=== PATIENT | female | born 1935 | race Caucasian/White ===

== ENCOUNTER → 2018-09-30 | Outpatient (CLI) | payer MEDICARE ==
[~2018-09-30] MED LIST: ATOR10 PO; ERGO500014 PO; ESOM40CA54 PO; FAMC250T4 PO; LEVO100T12 PO; LISI-613 PO; VITA1CAP85 SL; verapamil PO
== END | disposition home or self-care (01) ==
LOC: RAH 09:17
PROVIDERS: ATTEND Family Medicine
DX: Z12.31 Encounter for screening mammogram for malignant neoplasm of breast (principal)
CPT/HCPCS: 77067

== ENCOUNTER → 2019-06-25 | Outpatient (CLI) | payer MEDICARE ==
[~2019-06-25] VITALS: Ht 170.2 cm; Wt 79.5 kg
[~2019-06-25] MED LIST changes: +ALEN70TA10 PO; +B1/B1TAB4 PO; +LACTATED RINGERS 1000ML 1,000 ML IV SCH; +NAPR-1141 PO
[2019-06-25 10:26] VITALS: BP 154/81
[2019-06-25 10:36] LABS: APPEARANCE,URINE Cloudy (CLEAR); BASOPHILS % (AUTO) 1.3 % (0.0-5.0); BILIRUBIN,URINE Negative (NEGATIVE); COLOR,URINE Yellow (YELLOW); EOSINOPHILS % (AUTO) 3.7 % (0.0-8.0); GLUCOSE, URINE (UA) Negative (NEGATIVE); HEMATOCRIT 38.8 % (36-48); KETONES,URINE Negative (NEGATIVE); LEUKOCYTE ESTERASE ,URINE Large (NEGATIVE); LYMPHOCYTES % (AUTO) 30.4 % (21.0-51.0); MEAN CORPUSCULAR HEMOGLOBIN 31.3 pg (27.0-33.0); MEAN CORPUSCULAR HGB CONC 33.5 g/dL (32.0-36.0); MEAN CORPUSCULAR VOLUME 93.4 fL (79-99); MONOCYTES % (AUTO) 9.5 % (3.0-13.0); NEUTROPHILS % (AUTO) 55.1 % (40.0-77.0); NITRATE,URINE Positive (NEGATIVE); OCCULT BLOOD,URINE Negative (NEGATIVE); PLATELET COUNT (AUTO) 291 K/uL (130-400); PROTEIN,URINE Negative (NEGATIVE); RED BLOOD CELL COUNT(AUTO) 4.16 MIL/uL (4.00-5.50); RED CELL DISTRIBUTION WIDTH 14.1 % (11.0-15.5); WHITE BLOOD COUNT (AUTO) 7.8 K/uL (4.8-10.8)
[2019-06-25 10:45] LABS: CREATININE 1.6 mg/dL (0.5-1.5); POTASSIUM 4.7 mmol/L (3.5-5.1)
[2019-06-25 10:53] LABS: RBC,URINE 0-1 /HPF (0-1); WBC,URINE 26-50 /HPF (0-1)
[2019-06-25 10:54] LABS: BACTERIA,URINE Many /HPF (None Seen); SQUAMOUS EPITHELIAL CELL,UR Moderate /HPF (0-2)
== END | disposition home or self-care (01) ==
LOC: LAB 09:00 → EDSTATUS 10:00
PROVIDERS: ATTEND Surgery
DX: Z01.818 Encounter for other preprocedural examination (principal); K43.2 Incisional hernia without obstruction or gangrene; Z88.0 Allergy status to penicillin; Z88.5 Allergy status to narcotic agent
CPT/HCPCS: 36415; 80048; 81001; 85025; 93005

== ENCOUNTER 2019-07-15 08:14 | Day surgery (SDC) | payer MEDICARE ==
--- NOTE | 2019-07-13 16:00 | NUR ---
[facility] PT REFUSED TO BRING MED BTL. TO VERIFY LIST THAT IS ON FILE.
[2019-07-13 16:37] VITALS: BP 158/78
[2019-07-13 16:41] LABS: BASOPHILS % (AUTO) 1.5 % (0.0-5.0); EOSINOPHILS % (AUTO) 2.8 % (0.0-8.0); HEMATOCRIT 39.2 % (36-48); MEAN CORPUSCULAR HEMOGLOBIN 30.6 pg (27.0-33.0); MEAN CORPUSCULAR VOLUME 92.8 fL (79-99); MONOCYTES % (AUTO) 10.1 % (3.0-13.0); NEUTROPHILS % (AUTO) 49.6 % (40.0-77.0); NUCLEATED RED BLOOD CELLS 0.1 % (0.0-0.19); PLATELET COUNT (AUTO) 288 K/uL (130-400); RED BLOOD CELL COUNT(AUTO) 4.22 MIL/uL (4.00-5.50); RED CELL DISTRIBUTION WIDTH 14.1 % (11.0-15.5); WHITE BLOOD COUNT (AUTO) 7.3 K/uL (4.8-10.8)
[2019-07-13 16:42] LABS: APPEARANCE,URINE CLOUDY (CLEAR); BILIRUBIN,URINE NEGATIVE (NEGATIVE); COLOR,URINE YELLOW (YELLOW); GLUCOSE, URINE (UA) NEGATIVE (NEGATIVE); KETONES,URINE NEGATIVE (NEGATIVE); LEUKOCYTE ESTERASE ,URINE MODERATE (NEGATIVE); NITRATE,URINE POSITIVE (NEGATIVE); OCCULT BLOOD,URINE NEGATIVE (NEGATIVE); PROTEIN,URINE NEGATIVE (NEGATIVE); UROBILINOGEN,URINE 0.2 mg/dL (0.2-1.0)
[2019-07-13 16:49] LABS: BACTERIA,URINE Many /HPF (None Seen); RBC,URINE 0-1 /HPF (0-1); SQUAMOUS EPITHELIAL CELL,UR 0-2 /HPF (0-2)
[2019-07-13 16:50] LABS: CREATININE 1.5 mg/dL (0.5-1.5); POTASSIUM 4.8 mmol/L (3.5-5.1)
--- NOTE | 2019-07-14 10:30 | NUR ---
EKG PER DR. RAHMAN EKG OK TO GO FOURTH WITH PROCEDURE.
--- NOTE | 2019-07-14 17:57 | NUR ---
reported ua cloudy, positive nitrate , leukest moderate, wbc 6-10, bacteria many and sqam of 0-2, no new orders per doctor barbara julien not on any antibitoics as per medication reconcillation and also reported bun 22, clinical education assistant 1.5, gfr 35. Okay to proceed with procedure
[~2019-07-15] VITALS: Ht 170.2 cm; Wt 80.3 kg
[2019-07-15] VITALS (16 sets, daily range): BP systolic 131–182; BP diastolic 56–89
[~2019-07-15 08:14] MED LIST changes: -ERGO500014 PO; -LACTATED RINGERS 1000ML 1,000 ML IV SCH; -VITA1CAP85 SL
[2019-07-15] MEDS ORDERED: LACTATED RINGERS 1000ML 1,000 ML IV ONE (09:35)
[2019-07-15] MEDS ORDERED: ONDANSETRON HCL 4 MG/2 ML VIAL ONE (09:43)
[2019-07-15] MEDS ORDERED: LIDOCAINE PF 2% 5ML ABBOJECT ONE (09:43)
[2019-07-15] MEDS ORDERED: BUPIVACAINE/PF 0.25% 30ML VIAL IJ ONE (09:44)
[2019-07-15] MEDS ORDERED: ROCURONIUM 10MG/1ML SYR 10 MG/ML ML ONE (09:44)
[2019-07-15] MEDS ORDERED: FENTANYL CITRATE PF 50 MCG/1 ML 2ML VIAL ONE (09:44)
[2019-07-15] MEDS ORDERED: PROPOFOL 10 MG/ML 20ML VIAL IV ONE (09:44)
[2019-07-15] MEDS: CEFAZOLIN SODIUM 1 GM VIAL ONE ×2 (10:03→10:10)
[2019-07-15] MEDS ORDERED: DEXAMETHASONE SOD PHOSPHATE 10MG/ML 1ML VIAL ONE (10:18)
[2019-07-15] MEDS ORDERED: GLYCOPYRROLATE 1 MG/5 ML SYRINGE ONE (10:35)
[2019-07-15] MEDS ORDERED: NEOSTIGMINE 5MG/5ML SYR IV ONE (10:35)
== END 2019-07-15 13:47 | disposition home or self-care (01) ==
LOC: DAH 08:14
PROVIDERS: ATTEND Surgery
DX: K43.2 Incisional hernia without obstruction or gangrene (principal); I10 Essential (primary) hypertension; K21.9 Gastro-esophageal reflux disease without esophagitis; N28.9 Disorder of kidney and ureter, unspecified; Z88.1 Allergy status to other antibiotic agents; Z88.5 Allergy status to narcotic agent; Z98.890 Other specified postprocedural states
CPT/HCPCS: 36415; 49560; 80048; 81001; 85025; 93005; A4450; A4452; A4606; A4930; J0690; J1100; J2001; J2405; J2704; J2710; J3010; J3490 ×2; J7120 ×2

== ENCOUNTER → 2019-08-18 | Outpatient (CLI) | payer MEDICARE ==
[2019-08-18 10:19] LABS: CREATININE 1.4 mg/dL (0.5-1.5)
== END | disposition home or self-care (01) ==
LOC: LAB 09:52
PROVIDERS: ATTEND Surgery
DX: L76.32 Postprocedural hematoma of skin and subcutaneous tissue following other procedure (principal)
CPT/HCPCS: 36415; 82565; 84520

== ENCOUNTER → 2019-08-20 | Outpatient (CLI) | payer MEDICARE ==
[~2019-08-20] MED LIST changes: +IOHEXOL-350 75 ML VIAL IV ONE
== END | disposition home or self-care (01) ==
LOC: RAH 09:02
PROVIDERS: ATTEND Surgery
DX: L76.32 Postprocedural hematoma of skin and subcutaneous tissue following other procedure (principal); K44.9 Diaphragmatic hernia without obstruction or gangrene; M47.814 Spondylosis without myelopathy or radiculopathy, thoracic region; N32.89 Other specified disorders of bladder
CPT/HCPCS: 74176; Q9967

== ENCOUNTER → 2019-10-18 | Outpatient (CLI) | payer MEDICARE ==
[~2019-10-18] MED LIST changes: -IOHEXOL-350 75 ML VIAL IV ONE
== END | disposition home or self-care (01) ==
LOC: RAH 08:39
PROVIDERS: ATTEND Family Medicine
DX: Z12.31 Encounter for screening mammogram for malignant neoplasm of breast (principal)
CPT/HCPCS: 77067

== ENCOUNTER → 2020-09-08 | Outpatient (CLI) | payer MEDICARE ==
[~2020-09-08] MED LIST changes: -ALEN70TA10 PO; +ALEN70TA69 PO; +FAMC250T PO; -FAMC250T4 PO
== END | disposition home or self-care (01) ==
LOC: SHCH 10:25
PROVIDERS: ATTEND Internal Medicine Cardiovascular Disease
DX: I87.2 Venous insufficiency (chronic) (peripheral) (principal)
CPT/HCPCS: 93970

== ENCOUNTER → 2020-10-25 | Outpatient (CLI) | payer MEDICARE | END | disposition home or self-care (01) | LOC: RAH 12:25 | PROVIDERS: ATTEND Family Medicine | DX: Z12.31 Encounter for screening mammogram for malignant neoplasm of breast (principal) | CPT/HCPCS: 77067 ==

== ENCOUNTER 2020-11-02 07:23 | Inpatient (IN) | payer MEDICARE ==
[2020-10-25 13:47] LABS: INR 0.94 (0.85-1.15); PARTIAL THROMBOPLASTIN TIME 25.4 SEC (26.3-35.5); PROTHROMBIN TIME 10.2 SEC (9.6-11.6)
[2020-11-01 11:12] VITALS: BP 200/75
[2020-11-02] VITALS (24 sets, daily range): BP systolic 118–180; BP diastolic 42–87
[~2020-11-02] VITALS: Ht 170.2 cm; Wt 74.8 kg
[2020-11-02] MEDS ORDERED: LACTATED RINGERS 1000ML 1,000 ML IV ONE (08:50)
[2020-11-02] MEDS ORDERED: LIDOCAINE PF 2% 5ML ABBOJECT ONE (09:34)
[2020-11-02] MEDS ORDERED: ROCURONIUM 10MG/1ML SYR 10 MG/ML ML ONE (09:35)
[2020-11-02] MEDS ORDERED: PROPOFOL 10 MG/ML 20ML VIAL IV ONE (09:35)
[2020-11-02] MEDS ORDERED: FENTANYL CITRATE PF 50 MCG/1 ML 2ML VIAL ONE (09:36)
[2020-11-02] MEDS ORDERED: ROPIVACAINE 0.5% 5MG/ML 30ML IJ ONE (09:38)
[2020-11-02] MEDS ORDERED: CLINDAMYCIN 900 MG/D5% WATER 50 ML IV ONE (09:43)
[2020-11-02] MEDS ORDERED: TRANEXAMIC ACID 1000MG/10ML ONE (09:47)
[2020-11-02] MEDS ORDERED: GLYCOPYRROLATE 1 MG/5 ML SYRINGE ONE (11:55)
[2020-11-02] MEDS ORDERED: SODIUM CHLORIDE 0.9% 10 ML VIAL ONE (12:16)
[2020-11-02] MEDS ORDERED: PHENYLEPHRINE HCL 10 MG/ML 1ML VIAL IV ONE (12:16)
[2020-11-02] MEDS ORDERED: NEOSTIGMINE 5MG/5ML SYR IV ONE (12:49)
[2020-11-02] MEDS ORDERED: KETOROLAC TROMETHAMINE 30MG/ML ONE (12:53)
[2020-11-02] MEDS: ACETAMINOPHEN EXTRA STRENGTH 500 MG TABLET PO SCH ×2 (13:00→20:59)
[2020-11-02] MEDS: SODIUM CHLORIDE 0.9% 1000ML 1,000 ML IV SCH (13:00)
[2020-11-02] MEDS ORDERED: CALCIUM CARBONATE 500 MG TABLET PO PRN (13:00)
[2020-11-02] MEDS ORDERED: DiphenhydrAMINE HCL 50 MG/ML VIAL IVP PRN (13:00)
[2020-11-02] MEDS ORDERED: ONDANSETRON HCL 4 MG/2 ML VIAL IVP PRN (13:00)
[2020-11-02] MEDS ORDERED: HYDROMORPHONE HCL 2 MG TAB PO PRN (13:00)
[2020-11-02] MEDS ORDERED: ONDANSETRON HCL 4 MG/2 ML VIAL ONE (13:01)
[2020-11-02] MEDS ORDERED: ARTIFICAL TEARS SOL 15 ML OU PRN (16:45)
[2020-11-02] MEDS: MORPHINE SULFATE 4 MG/1ML SYG IVP PRN ×2 (17:08→21:05)
[2020-11-02] MEDS: CLINDAMYCIN 600 MG/D5% WATER 50 ML IV SCH ×2 (17:21→17:22)
[2020-11-02] MEDS: ASPIRIN 81 MG EC TAB PO SCH (20:58)
[2020-11-02] MEDS: FAMCICLOVIR 250 MG PO SCH (21:00)
[2020-11-02] MEDS ORDERED: FAMCICLOVIR 250 MG PO SCH (21:00)
[2020-11-03] MEDS: CLINDAMYCIN 600 MG/D5% WATER 50 ML IV SCH ×2 (01:06→19:17)
[2020-11-03] MEDS: SODIUM CHLORIDE 0.9% 1000ML 1,000 ML IV SCH ×2 (01:07→09:00)
[2020-11-03 03:50] VITALS: BP 128/56
[2020-11-03 05:45] LABS: MEAN CORPUSCULAR HEMOGLOBIN 29.9 pg (27.0-33.0); MEAN CORPUSCULAR HGB CONC 32.3 g/dL (32.0-36.0); MEAN CORPUSCULAR VOLUME 92.5 fL (79-99); RED BLOOD CELL COUNT(AUTO) 3.35 MIL/uL (4.00-5.50); RED CELL DISTRIBUTION WIDTH 14.6 % (11.0-15.5); WHITE BLOOD COUNT (AUTO) 7.2 K/uL (4.8-10.8)
[2020-11-03 05:59] LABS: CREATININE 1.2 mg/dL (0.5-1.5); POTASSIUM 4.6 mmol/L (3.5-5.1)
[2020-11-03] MEDS: LEVOTHYROXINE 100 MCG TABLET PO SCH (06:18)
[2020-11-03] MEDS: ACETAMINOPHEN EXTRA STRENGTH 500 MG TABLET PO SCH ×3 (06:19→19:43)
[2020-11-03 08:00] VITALS: BP 127/52
[2020-11-03] MEDS: LISINOPRIL 20 MG TABLET PO SCH (08:48)
[2020-11-03] MEDS: POLYETHYLENE GLYCOL 3350 17 GM POWD.PACK PO SCH (08:48)
[2020-11-03] MEDS: FAMOTIDINE 20MG TAB 20 MG TAB PO SCH (08:48)
[2020-11-03] MEDS: ASPIRIN 81 MG EC TAB PO SCH ×2 (08:48→19:43)
[2020-11-03] MEDS: IBUPROFEN 400 MG TABLET PO PRN (08:50)
[2020-11-03] MEDS: FAMCICLOVIR 250 MG PO SCH ×2 (08:51→19:44)
[2020-11-03 12:00] VITALS: BP 102/42
--- NOTE | 2020-11-03 13:48 | NUR ---
CM NOTE/[facility] MET WITH PATIENT AT BEDSIDE FOR NEW REFERRAL TO IRU FOR PHYSICAL THERAPY. SUSAN COMPLETED FOR [facility] OR [facility]. VB CALLED,NO BEDS UNTIL 2019. PATIENT STATES OK FOR PLAN B OF [facility]. PER [facility], BEDS AVAILABLE, OK TO SEND CLINICAL REFERRAL AND CURRENT COVID PCR NEGATIVE TEST WHICH RESULTED ON 10/25. CLINICAL REFERRAL EMAILED TO [facility], PENDING DR. WEN TO SIGN COVID FORM, FAXED TO HIS OFFICE, PENDING RETURN FAX. PRIMARY NURSE, VIOLA YOUNG, AWARE OF DC PLAN.
--- NOTE | 2020-11-03 13:52 | NUR ---
CM NOTE/IA MET WITH PATIENT IN ROOM. PER PATIENT, LIVES ALONE IN A SMALL TRAILED, IS INDEPENDENT WITH ADLS, HAS RAMP, HAS USE OF CANE AND ROLLATOR WALKER, DRIVES TO APPOINTMENTS, AND OPEN TO IRU. REFERRAL HAS ALREADY BEEN SENT TO [facility]. CM TO FOLLOW UP FOR ACCEPTANCE. Addendum: 11/03/20 at 1355 by ZARIA REYNOLDS RN CM Amended: Links added.
[2020-11-03 16:00] VITALS: BP 118/48
--- NOTE | 2020-11-03 16:11 | NUR ---
CM NOTE/[facility] PER [facility] AT [facility], PATIENT HAS BEEN ACCEPTED. PER DR. WEN, PATIENT TO DC IN AM. PATIENT AWARE. PRIMARY NURSE, VIOLA YOUNG, AWARE.
[2020-11-03 19:33] VITALS: BP 124/50
[2020-11-03] MEDS: MORPHINE SULFATE 4 MG/1ML SYG IVP PRN (19:47)
[2020-11-03 23:25] VITALS: BP 130/54
[2020-11-04 04:00] VITALS: BP 135/54
[2020-11-04] MEDS: LEVOTHYROXINE 100 MCG TABLET PO SCH (05:26)
[2020-11-04] MEDS: ACETAMINOPHEN EXTRA STRENGTH 500 MG TABLET PO SCH ×2 (05:28→13:17)
[2020-11-04] MEDS: MORPHINE SULFATE 4 MG/1ML SYG IVP PRN (07:57)
[2020-11-04] MEDS: FAMOTIDINE 20MG TAB 20 MG TAB PO SCH (07:59)
[2020-11-04] MEDS: ASPIRIN 81 MG EC TAB PO SCH (07:59)
[2020-11-04] MEDS: FAMCICLOVIR 250 MG PO SCH (07:59)
[2020-11-04] MEDS: LISINOPRIL 20 MG TABLET PO SCH (07:59)
[2020-11-04] MEDS: POLYETHYLENE GLYCOL 3350 17 GM POWD.PACK PO SCH (07:59)
[2020-11-04 08:00] VITALS: BP 163/63
[2020-11-04 12:00] VITALS: BP 105/54
[2020-11-04 16:00] VITALS: BP 155/62
[2020-11-04] MEDS: IBUPROFEN 400 MG TABLET PO PRN (17:36)
--- NOTE | 2020-11-04 18:10 | NUR ---
DISCHARGE PATIENT GIVEN DISCHARGE INSTRUCTIONS VIA TEACH BACK. 20G PIV TO LEFT HAND AND 20G PIV TO RIGHT HAND DISCONTINUED, TIPS INTACT. PATIENT TO BE TRANSFERRED TO [facility] FOR PHYSICAL THERAPY, INCISION CARE, PAIN AND ANTICOAGULANT MANAGEMENT. REPORT GIVEN TO HANNAH MARADIAGA. DRESSING TO LEFT HIP CHANGED, TO BE REMOVED ONCE BATTERY PACK NO LONGER WORKS. PATIENT TRANSFERRED VIA EMS TO FACILITY. PATIENT STABLE AT THIS TIME AND DENIES ANY PAIN OR DISCOMFORT.
[2020-11-05] MEDS ORDERED: BISACODYL 10 MG SUPP.RECT RC PRN (13:00)
== END 2020-11-04 18:10 | DRG 470 ==
LOC: DAH 07:23 → DAHIP 07:24 → 3AH 14:29
PROVIDERS: ADMIT Orthopaedic Surgery; ATTEND Orthopaedic Surgery
PROC: 0SRB039 Replacement of Left Hip Joint with Ceramic Synthetic Substitute, Cemented, Open Approach (ICD-10-PCS; principal; 2020-11-02 10:24)
DX: M16.12 Unilateral primary osteoarthritis, left hip (principal); M84.359A Stress fracture, hip, unspecified, initial encounter for fracture; X58.XXXA Exposure to other specified factors, initial encounter; M21.752 Unequal limb length (acquired), left femur; Z20.828 Contact with and (suspected) exposure to other viral communicable diseases; E66.3 Overweight; M54.5 Low back pain; Y93.89 Activity, other specified; Y92.89 Other specified places as the place of occurrence of the external cause; Z88.1 Allergy status to other antibiotic agents; Y99.8 Other external cause status; Z88.5 Allergy status to narcotic agent; Z88.8 Allergy status to other drugs, medicaments and biological substances; Z82.3 Family history of stroke; Z82.49 Family history of ischemic heart disease and other diseases of the circulatory system; Z80.9 Family history of malignant neoplasm, unspecified; Z68.25 Body mass index [BMI] 25.0-25.9, adult
CPT/HCPCS: 36415; 73503; 73521; 80048; 85027; 85610; 85730; 86850; 86900; 86901; 87070; 87076; 87205; 87641; 93005; 97039; A4606; G0378; J1885; J2001; J2270; J2370; J2405; J2704; J2710; J2795; J3010; J3490; J7120; U0003

== ENCOUNTER 2020-11-19 10:11 | Inpatient (IN) | payer MEDICARE ==
[~2020-11-19] VITALS: Ht 170.2 cm; Wt 83.6 kg
[2020-11-19 12:23] LABS: BASOPHILS % (AUTO) 0.8 % (0.0-5.0); EOSINOPHILS % (AUTO) 0.4 % (0.0-8.0); HEMATOCRIT 28.4 % (36-48); LYMPHOCYTES % (AUTO) 11.8 % (21.0-51.0); MEAN CORPUSCULAR HEMOGLOBIN 30.5 pg (27.0-33.0); MEAN CORPUSCULAR HGB CONC 33.1 g/dL (32.0-36.0); MEAN CORPUSCULAR VOLUME 92.2 fL (79-99); MONOCYTES % (AUTO) 6.9 % (3.0-13.0); NEUTROPHILS % (AUTO) 78.6 % (40.0-77.0); PLATELET COUNT (AUTO) 533 K/uL (130-400); RED BLOOD CELL COUNT(AUTO) 3.08 MIL/uL (4.00-5.50); RED CELL DISTRIBUTION WIDTH 14.6 % (11.0-15.5); WHITE BLOOD COUNT (AUTO) 14.4 K/uL (4.8-10.8)
[2020-11-19 12:40] LABS: CREATININE 1.4 mg/dL (0.5-1.5); POTASSIUM 4.6 mmol/L (3.5-5.1)
[2020-11-19 12:44] LABS: ALBUMIN 3.2 g/dL (3.5-5.0); BILIRUBIN,TOTAL 0.6 mg/dL (0.2-1.0); TOTAL PROTEIN, SERUM 6.2 g/dL (6.0-8.3)
[2020-11-19 12:50] LABS: INR 1.07 (0.85-1.15); PROTHROMBIN TIME 11.4 SEC (9.6-11.6)
[2020-11-19 12:51] LABS: PARTIAL THROMBOPLASTIN TIME 25.5 SEC (26.3-35.5)
[2020-11-19] MEDS ORDERED: ONDANSETRON HCL 4 MG/2 ML VIAL ONE (13:47)
[2020-11-19] MEDS ORDERED: ENOXAPARIN SODIUM 80 MG/0.8 ML SQ ONE (13:47)
[2020-11-19] MEDS ORDERED: MORPHINE SULFATE 2 MG/ML 1ML SYG ONE ×2 (13:47→16:03)
[2020-11-19] MEDS ORDERED: HYDROMORPHONE 1 MG/1 ML AMP IVP ONE (16:15)
[2020-11-19] MEDS ORDERED: MAG HYDROX/AL HYDROX/SIMETH ES 30 ML SUSP UDCUP PO PRN (16:15)
[2020-11-19] MEDS ORDERED: DIPHENHYDRAMINE HCL 25 MG CAPSULE PO PRN (16:15)
[2020-11-19] MEDS ORDERED: ACETAMINOPHEN 325 MG TAB PO PRN ×2 (16:15)
[2020-11-19] MEDS ORDERED: PHARMACY COMMUNICATION MISC SCH (16:15)
[2020-11-19] MEDS ORDERED: GUAIFENESIN-DM 200/20 MG 10 ML PO PRN (16:15)
[2020-11-19 18:31] VITALS: BP 112/80
[2020-11-19 19:35] VITALS: BP 99/44
[2020-11-19] MEDS: ATORVASTATIN CALCIUM 20 MG TABLET PO SCH (19:36)
[2020-11-19] MEDS ORDERED: LEVOFLOXACIN 500 MG/D5W 100 ML 100 ML IV SCH (20:00)
[2020-11-19] MEDS: MORPHINE SULFATE 4 MG/1ML SYG IV PRN (20:19)
[2020-11-19] MEDS: VERAPAMIL PO SCH (21:00)
[2020-11-19 23:22] VITALS: BP 112/43
[2020-11-20] VITALS (21 sets, daily range): BP systolic 98–127; BP diastolic 45–58
[2020-11-20] MEDS: ENOXAPARIN SODIUM 80 MG/0.8 ML SQ SCH ×2 (02:12→09:00)
[2020-11-20] MEDS: LEVOTHYROXINE 100 MCG TABLET PO SCH (05:12)
[2020-11-20] MEDS: MORPHINE SULFATE 4 MG/1ML SYG IV PRN (05:17)
[2020-11-20] MEDS: HYDROMORPHONE 1 MG/1 ML AMP IVP PRN ×2 (08:16→12:48)
[2020-11-20] MEDS: Vitamin B Complex/Vit C/Folic Acid PO SCH (09:00)
[2020-11-20] MEDS: LISINOPRIL 20 MG TABLET PO SCH (09:00)
[2020-11-20 13:16] LABS: BASOPHILS % (AUTO) 0.9 % (0.0-5.0); EOSINOPHILS % (AUTO) 0.9 % (0.0-8.0); HEMATOCRIT 21.9 % (36-48); LYMPHOCYTES % (AUTO) 19.6 % (21.0-51.0); MEAN CORPUSCULAR HEMOGLOBIN 30.3 pg (27.0-33.0); MEAN CORPUSCULAR VOLUME 94.8 fL (79-99); MONOCYTES % (AUTO) 11.8 % (3.0-13.0); NEUTROPHILS % (AUTO) 64.9 % (40.0-77.0); PLATELET COUNT (AUTO) 385 K/uL (130-400); RED BLOOD CELL COUNT(AUTO) 2.31 MIL/uL (4.00-5.50); RED CELL DISTRIBUTION WIDTH 14.9 % (11.0-15.5); WHITE BLOOD COUNT (AUTO) 10.7 K/uL (4.8-10.8)
[2020-11-20] MEDS ORDERED: SODIUM HYPOCHLORITE 0.25% [HALF STRENGTH] 473 ML TOPICAL SOLN TP ONE (19:00)
[2020-11-20] MEDS ORDERED: TRANEXAMIC ACID 1000MG/10ML ONE (19:06)
[2020-11-20] MEDS ORDERED: CEFAZOLIN SODIUM 1 GM VIAL ONE (19:10)
[2020-11-20] MEDS ORDERED: LIDOCAINE PF 2% 5ML ABBOJECT ONE (19:18)
[2020-11-20] MEDS ORDERED: MIDAZOLAM HCL 1 MG/ML 2ML VIAL ONE (19:19)
[2020-11-20] MEDS ORDERED: ONDANSETRON HCL 4 MG/2 ML VIAL ONE (19:19)
[2020-11-20] MEDS ORDERED: DEXAMETHASONE SOD PHOSPHATE 10MG/ML 1ML VIAL ONE (19:19)
[2020-11-20] MEDS ORDERED: PROPOFOL 10 MG/ML 20ML VIAL IV ONE (19:19)
[2020-11-20] MEDS ORDERED: FENTANYL CITRATE PF 50 MCG/1 ML 2ML VIAL ONE (19:20)
[2020-11-20] MEDS ORDERED: ROCURONIUM 10MG/1ML SYR 10 MG/ML ML ONE ×2 (19:45→20:16)
[2020-11-20] MEDS ORDERED: LEVOFLOXACIN 250 MG/D5W 50ML 50 ML IVPB SCH (20:00)
[2020-11-20] MEDS ORDERED: EPHEDRINE SULFATE 50 MG/ML AMPULE ONE (20:02)
[2020-11-20] MEDS ORDERED: CLINDAMYCIN PHOSPHATE 150 MG/ML 6ML VIAL ONE (20:16)
[2020-11-20] MEDS: VERAPAMIL PO SCH (21:00)
[2020-11-20] MEDS: ATORVASTATIN CALCIUM 20 MG TABLET PO SCH (21:00)
[2020-11-20] MEDS ORDERED: NEOSTIGMINE 5MG/5ML SYR IV ONE (22:00)
[2020-11-20] MEDS ORDERED: GLYCOPYRROLATE 1 MG/5 ML SYRINGE ONE (22:00)
[2020-11-20] MEDS ORDERED: SUGAMMADEX SODIUM 200 MG/2 ML VIAL IV ONE (22:12)
[2020-11-20 22:26] LABS: ABG BASE EXCESS -9.9 mmol/L (-2.0-3.0); ABG HCO3 16.2 mmol/L (21.0-28.0); ABG OXYGEN SATURATION 98.7 % (95.0-99.0); ABG PCO2 36 mmHg (32-45)
[2020-11-20] MEDS ORDERED: SODIUM BICARB 50MEQ 50ML VIAL 50 ML ONE (22:29)
[2020-11-20 23:44] LABS: ABG BASE EXCESS -4.3 mmol/L (-2.0-3.0); ABG OXYGEN SATURATION 94.6 % (95.0-99.0); ABG PCO2 33 mmHg (32-45)
[2020-11-21] VITALS (18 sets, daily range): BP systolic 84–119; BP diastolic 36–63
[2020-11-21] MEDS: CLINDAMYCIN 600 MG/D5% WATER 50 ML IV SCH ×4 (01:51→21:45)
[2020-11-21] MEDS: LEVOTHYROXINE 100 MCG TABLET PO SCH (06:39)
[2020-11-21] MEDS: Vitamin B Complex/Vit C/Folic Acid PO SCH (08:43)
[2020-11-21] MEDS: LISINOPRIL 20 MG TABLET PO SCH (08:44)
[2020-11-21 09:40] LABS: HEMATOCRIT 24.4 % (36-48); MEAN CORPUSCULAR HEMOGLOBIN 30.4 pg (27.0-33.0); MEAN CORPUSCULAR HGB CONC 33.6 g/dL (32.0-36.0); MEAN CORPUSCULAR VOLUME 90.4 fL (79-99); RED BLOOD CELL COUNT(AUTO) 2.7 MIL/uL (4.00-5.50); RED CELL DISTRIBUTION WIDTH 14.8 % (11.0-15.5); WHITE BLOOD COUNT (AUTO) 10.2 K/uL (4.8-10.8)
[2020-11-21 09:48] LABS: CREATININE 1.9 mg/dL (0.5-1.5); POTASSIUM 4.9 mmol/L (3.5-5.1)
[2020-11-21] MEDS: VERAPAMIL PO SCH (21:00)
[2020-11-21] MEDS: ATORVASTATIN CALCIUM 20 MG TABLET PO SCH (21:46)
[2020-11-21] MEDS: SULFAMETHOX-TMP DS 800/160 TAB PO SCH (21:46)
[2020-11-21] MEDS: MORPHINE SULFATE 4 MG/1ML SYG IV PRN (21:46)
[2020-11-22] VITALS (7 sets, daily range): BP systolic 86–98; BP diastolic 34–45
[2020-11-22] MEDS: CLINDAMYCIN 600 MG/D5% WATER 50 ML IV SCH ×4 (02:38→20:36)
[2020-11-22] MEDS: LEVOTHYROXINE 100 MCG TABLET PO SCH (07:03)
[2020-11-22] MEDS: LISINOPRIL 20 MG TABLET PO SCH (09:00)
[2020-11-22] MEDS: APIXABAN 2.5 MG TABLET PO SCH ×2 (10:55→20:37)
[2020-11-22] MEDS: SULFAMETHOX-TMP DS 800/160 TAB PO SCH ×2 (10:55→20:36)
[2020-11-22] MEDS: Vitamin B Complex/Vit C/Folic Acid PO SCH (10:55)
[2020-11-22] MEDS: ONDANSETRON HCL 4 MG/2 ML VIAL IV PRN (10:56)
[2020-11-22] MEDS: MORPHINE SULFATE 4 MG/1ML SYG IV PRN (10:56)
[2020-11-22] MEDS: VERAPAMIL PO SCH (10:57)
[2020-11-22] MEDS: ATORVASTATIN CALCIUM 20 MG TABLET PO SCH (20:36)
[2020-11-23] VITALS (8 sets, daily range): BP systolic 107–146; BP diastolic 46–70
[2020-11-23] MEDS: CLINDAMYCIN 600 MG/D5% WATER 50 ML IV SCH (02:00)
[2020-11-23 03:48] LABS: BASOPHILS % (AUTO) 0.4 % (0.0-5.0); EOSINOPHILS % (AUTO) 1.7 % (0.0-8.0); MEAN CORPUSCULAR HEMOGLOBIN 30.3 pg (27.0-33.0); MEAN CORPUSCULAR HGB CONC 33.2 g/dL (32.0-36.0); MEAN CORPUSCULAR VOLUME 91.4 fL (79-99); MONOCYTES % (AUTO) 9.9 % (3.0-13.0); NEUTROPHILS % (AUTO) 59.1 % (40.0-77.0); PLATELET COUNT (AUTO) 328 K/uL (130-400); RED BLOOD CELL COUNT(AUTO) 2.21 MIL/uL (4.00-5.50); RED CELL DISTRIBUTION WIDTH 14.8 % (11.0-15.5); WHITE BLOOD COUNT (AUTO) 9.2 K/uL (4.8-10.8)
[2020-11-23 03:57] LABS: HEMATOCRIT 20.2 % (36-48)
[2020-11-23 04:04] LABS: ALBUMIN 2.2 g/dL (3.5-5.0); BILIRUBIN,TOTAL 0.4 mg/dL (0.2-1.0); CREATININE 2.8 mg/dL (0.5-1.5); POTASSIUM 4.9 mmol/L (3.5-5.1)
[2020-11-23 04:09] LABS: % IRON SATURATION 22.5 % (22-44)
[2020-11-23] MEDS: LEVOTHYROXINE 100 MCG TABLET PO SCH (06:13)
[2020-11-23] MEDS: Vitamin B Complex/Vit C/Folic Acid PO SCH (09:46)
[2020-11-23] MEDS: SULFAMETHOX-TMP DS 800/160 TAB PO SCH ×2 (09:47→19:52)
[2020-11-23] MEDS: LISINOPRIL 20 MG TABLET PO SCH (09:47)
[2020-11-23] MEDS: LACTULOSE 20 GM/30 ML UDCUP PO PRN (17:29)
[2020-11-23] MEDS: ATORVASTATIN CALCIUM 20 MG TABLET PO SCH (19:52)
[2020-11-23] MEDS: VERAPAMIL PO SCH (19:55)
[2020-11-23 20:16] LABS: HEMATOCRIT 30.4 % (36-48)
[2020-11-24] VITALS (8 sets, daily range): BP systolic 114–174; BP diastolic 59–89
[2020-11-24] MEDS: LEVOTHYROXINE 100 MCG TABLET PO SCH (06:53)
[2020-11-24 06:55] LABS: BASOPHILS % (AUTO) 0.8 % (0.0-5.0); EOSINOPHILS % (AUTO) 2.7 % (0.0-8.0); HEMATOCRIT 29.8 % (36-48); LYMPHOCYTES % (AUTO) 20.4 % (21.0-51.0); MEAN CORPUSCULAR HEMOGLOBIN 29.9 pg (27.0-33.0); MEAN CORPUSCULAR HGB CONC 33.6 g/dL (32.0-36.0); MEAN CORPUSCULAR VOLUME 89.2 fL (79-99); MONOCYTES % (AUTO) 11.7 % (3.0-13.0); NEUTROPHILS % (AUTO) 61.6 % (40.0-77.0); PLATELET COUNT (AUTO) 375 K/uL (130-400); RED BLOOD CELL COUNT(AUTO) 3.34 MIL/uL (4.00-5.50); RED CELL DISTRIBUTION WIDTH 15.6 % (11.0-15.5); WHITE BLOOD COUNT (AUTO) 9.8 K/uL (4.8-10.8)
[2020-11-24 07:23] LABS: ALBUMIN 2.5 g/dL (3.5-5.0); BILIRUBIN,TOTAL 0.6 mg/dL (0.2-1.0); CREATININE 2.1 mg/dL (0.5-1.5); POTASSIUM 4.8 mmol/L (3.5-5.1); TOTAL PROTEIN, SERUM 5.7 g/dL (6.0-8.3)
[2020-11-24] MEDS: Vitamin B Complex/Vit C/Folic Acid PO SCH (08:32)
[2020-11-24] MEDS: SULFAMETHOX-TMP DS 800/160 TAB PO SCH ×2 (08:32→21:57)
[2020-11-24] MEDS: LISINOPRIL 20 MG TABLET PO SCH (08:32)
[2020-11-24] MEDS: VERAPAMIL PO SCH (21:00)
[2020-11-24] MEDS: APIXABAN 2.5 MG TABLET PO SCH (21:57)
[2020-11-24] MEDS: ATORVASTATIN CALCIUM 20 MG TABLET PO SCH (21:57)
[2020-11-24] MEDS ORDERED: VERAPAMIL HCL 80 MG TABLET ONE (22:01)
[2020-11-25 03:57] VITALS: BP 145/69
[2020-11-25 04:53] LABS: BASOPHILS % (AUTO) 0.8 % (0.0-5.0); EOSINOPHILS % (AUTO) 4.1 % (0.0-8.0); HEMATOCRIT 27.8 % (36-48); LYMPHOCYTES % (AUTO) 20.1 % (21.0-51.0); MEAN CORPUSCULAR HEMOGLOBIN 30.1 pg (27.0-33.0); MEAN CORPUSCULAR HGB CONC 33.5 g/dL (32.0-36.0); NEUTROPHILS % (AUTO) 60.1 % (40.0-77.0); PLATELET COUNT (AUTO) 361 K/uL (130-400); RED BLOOD CELL COUNT(AUTO) 3.09 MIL/uL (4.00-5.50); RED CELL DISTRIBUTION WIDTH 15.4 % (11.0-15.5)
[2020-11-25 05:17] LABS: ALBUMIN 2.5 g/dL (3.5-5.0); BILIRUBIN,TOTAL 0.6 mg/dL (0.2-1.0); CREATININE 1.9 mg/dL (0.5-1.5); TOTAL PROTEIN, SERUM 5.4 g/dL (6.0-8.3)
[2020-11-25] MEDS: LEVOTHYROXINE 100 MCG TABLET PO SCH (06:31)
[2020-11-25 08:00] VITALS: BP 143/68
[2020-11-25] MEDS: SULFAMETHOX-TMP DS 800/160 TAB PO SCH ×2 (10:07→20:07)
[2020-11-25] MEDS: LISINOPRIL 20 MG TABLET PO SCH (10:07)
[2020-11-25] MEDS: APIXABAN 2.5 MG TABLET PO SCH ×2 (10:07→20:07)
[2020-11-25] MEDS: Vitamin B Complex/Vit C/Folic Acid PO SCH (10:07)
[2020-11-25] MEDS: ONDANSETRON HCL 4 MG/2 ML VIAL IV PRN (10:21)
[2020-11-25 12:00] VITALS: BP 136/67
[2020-11-25 16:00] VITALS: BP 126/66
[2020-11-25 20:00] VITALS: BP 139/61
[2020-11-25] MEDS: VERAPAMIL PO SCH (20:08)
[2020-11-25] MEDS: ATORVASTATIN CALCIUM 20 MG TABLET PO SCH (20:13)
[2020-11-26] VITALS (9 sets, daily range): BP systolic 78–147; BP diastolic 36–69
[2020-11-26] MEDS: LEVOTHYROXINE 100 MCG TABLET PO SCH (05:26)
[2020-11-26] MEDS: LACTULOSE 20 GM/30 ML UDCUP PO PRN (05:26)
[2020-11-26 06:06] LABS: BASOPHILS % (AUTO) 1.2 % (0.0-5.0); HEMATOCRIT 26.7 % (36-48); LYMPHOCYTES % (AUTO) 25.3 % (21.0-51.0); MEAN CORPUSCULAR HEMOGLOBIN 30.6 pg (27.0-33.0); MEAN CORPUSCULAR HGB CONC 33.7 g/dL (32.0-36.0); MEAN CORPUSCULAR VOLUME 90.8 fL (79-99); MONOCYTES % (AUTO) 11.1 % (3.0-13.0); NEUTROPHILS % (AUTO) 51.3 % (40.0-77.0); PLATELET COUNT (AUTO) 352 K/uL (130-400); RED BLOOD CELL COUNT(AUTO) 2.94 MIL/uL (4.00-5.50); RED CELL DISTRIBUTION WIDTH 15.2 % (11.0-15.5); WHITE BLOOD COUNT (AUTO) 7.8 K/uL (4.8-10.8)
[2020-11-26 06:38] LABS: ALBUMIN 2.4 g/dL (3.5-5.0); BILIRUBIN,TOTAL 0.6 mg/dL (0.2-1.0); CREATININE 1.9 mg/dL (0.5-1.5); POTASSIUM 4.5 mmol/L (3.5-5.1); TOTAL PROTEIN, SERUM 5.3 g/dL (6.0-8.3)
[2020-11-26] MEDS: APIXABAN 2.5 MG TABLET PO SCH ×2 (09:07→20:54)
[2020-11-26] MEDS: LISINOPRIL 20 MG TABLET PO SCH (09:07)
[2020-11-26] MEDS: SULFAMETHOX-TMP DS 800/160 TAB PO SCH ×2 (09:07→20:54)
[2020-11-26] MEDS: Vitamin B Complex/Vit C/Folic Acid PO SCH (09:07)
[2020-11-26] MEDS: ATORVASTATIN CALCIUM 20 MG TABLET PO SCH (20:53)
[2020-11-26] MEDS: VERAPAMIL PO SCH (21:00)
[2020-11-27 03:50] VITALS: BP 143/69
[2020-11-27] MEDS: LEVOTHYROXINE 100 MCG TABLET PO SCH (05:45)
[2020-11-27 08:00] VITALS: BP 145/73
[2020-11-27 11:38] VITALS: BP 101/52
[2020-11-27] MEDS: APIXABAN 2.5 MG TABLET PO SCH ×2 (11:39→21:36)
[2020-11-27] MEDS: Vitamin B Complex/Vit C/Folic Acid PO SCH (11:39)
[2020-11-27] MEDS: SULFAMETHOX-TMP DS 800/160 TAB PO SCH ×2 (11:39→21:36)
[2020-11-27] MEDS: LISINOPRIL 20 MG TABLET PO SCH (11:39)
[2020-11-27] MEDS ORDERED: PANTOPRAZOLE SODIUM 40 MG TABLET.DR PO SCH ×2 (11:45)
[2020-11-27 19:00] VITALS: BP 140/56
[2020-11-27] MEDS: VERAPAMIL PO SCH (21:00)
[2020-11-27] MEDS: ATORVASTATIN CALCIUM 20 MG TABLET PO SCH (21:36)
== END 2020-11-27 22:58 | DRG 908 ==
LOC: EDH 10:11 → EDHIP 14:30 → 3BH 17:13 → 4AH 11-20 23:45 → 4DH 11-23 16:03
PROVIDERS: ADMIT Hospitalist; ATTEND Hospitalist
PROC: 30233N1 Transfusion of Nonautologous Red Blood Cells into Peripheral Vein, Percutaneous Approach (ICD-10-PCS; 2020-11-20)
PROC: 0SCB0ZZ Extirpation of Matter from Left Hip Joint, Open Approach (ICD-10-PCS; principal; 2020-11-20 19:36)
PROC: 0KQP0ZZ Repair Left Hip Muscle, Open Approach (ICD-10-PCS; 2020-11-20 19:36)
DX: M96.840 Postprocedural hematoma of a musculoskeletal structure following a musculoskeletal system procedure (principal); D62 Acute posthemorrhagic anemia; Y83.8 Other surgical procedures as the cause of abnormal reaction of the patient, or of later complication, without mention of misadventure at the time of the procedure; Z96.642 Presence of left artificial hip joint; E03.9 Hypothyroidism, unspecified; Z20.828 Contact with and (suspected) exposure to other viral communicable diseases; D72.829 Elevated white blood cell count, unspecified; E78.00 Pure hypercholesterolemia, unspecified; E78.5 Hyperlipidemia, unspecified; I10 Essential (primary) hypertension; T45.515A Adverse effect of anticoagulants, initial encounter; S76.012A Strain of muscle, fascia and tendon of left hip, initial encounter; X58.XXXA Exposure to other specified factors, initial encounter; N28.9 Disorder of kidney and ureter, unspecified; Z82.0 Family history of epilepsy and other diseases of the nervous system; Z82.3 Family history of stroke; Z82.49 Family history of ischemic heart disease and other diseases of the circulatory system; Z82.5 Family history of asthma and other chronic lower respiratory diseases; Z83.3 Family history of diabetes mellitus; Z88.0 Allergy status to penicillin; Z88.1 Allergy status to other antibiotic agents; Z88.5 Allergy status to narcotic agent; Z88.8 Allergy status to other drugs, medicaments and biological substances; Y92.89 Other specified places as the place of occurrence of the external cause; Y93.89 Activity, other specified; Y99.8 Other external cause status
CPT/HCPCS: 36415; 36430; 70450; 71045; 72192; 73502; 73552; 80048; 80053; 82435; 82550; 82803; 82947; 83540; 83550; 83605; 83690; 84132; 84295; 84484; 85014; 85018; 85025; 85027; 85610; 85730; 86850; 86900; 86901; 86923; 87070; 87076; 87205; 87426; 93005; 93925; 93970; 93971; 97039; A4344; A4606; G0378; J0690; J1100; J1170; J1650; J1956; J2001; J2250; J2270; J2405; J2704; J2710; J3010; J3490; J7030; J7040; P9016; Q0163; U0003

== ENCOUNTER → 2021-12-27 | Outpatient (CLI) | payer MEDICARE ==
[~2021-12-27] MED LIST changes: -ALEN70TA69 PO; +ALEN70TA80 PO; -LISI-613 PO; +LISI20TA24 PO
== END | disposition home or self-care (01) ==
LOC: RAH 08:22
PROVIDERS: ATTEND Family Medicine
DX: Z12.31 Encounter for screening mammogram for malignant neoplasm of breast (principal)
CPT/HCPCS: 77067

== ENCOUNTER → 2022-12-27 | Outpatient (CLI) | payer MEDICARE | END | disposition home or self-care (01) | LOC: RAH 08:50 | PROVIDERS: ATTEND Family Medicine | DX: Z12.31 Encounter for screening mammogram for malignant neoplasm of breast (principal) | CPT/HCPCS: 77067 ==

== ENCOUNTER → 2023-12-29 | Outpatient (CLI) | payer MEDICARE ==
[~2023-12-29] MED LIST changes: +APIX2.5T PO; +CEFEPIME IVPB; -NAPR-1141 PO; +PANT40TA PO; +POLY17PO4 PO; +Vancomycin Protocol IV; +[UNRECOGNIZED DRUG - CODE] PO
== END | disposition home or self-care (01) ==
LOC: RAH 08:47
PROVIDERS: ATTEND Family Medicine
DX: Z12.31 Encounter for screening mammogram for malignant neoplasm of breast (principal)
CPT/HCPCS: 77067

== ENCOUNTER → 2024-01-12 | Outpatient (CLI) | payer MEDICARE | END | disposition home or self-care (01) | LOC: RAH 13:33 | PROVIDERS: ATTEND Family Medicine | DX: N63.15 Unspecified lump in the right breast, overlapping quadrants (principal); N64.89 Other specified disorders of breast; R92.333 Mammographic heterogeneous density, bilateral breasts; R92.8 Other abnormal and inconclusive findings on diagnostic imaging of breast | CPT/HCPCS: 76641; 77065 ==